=== PATIENT | male | born 1965 | race African-American/Black ===

== ENCOUNTER 2017-03-03 12:20 | Outpatient (CLI) | payer OTHER ==
[2013-07-02 20:29] VITALS: BP 102/62
[2017-03-03 20:10] LABS: TOTAL PROTEIN 7.8 g/dL (6.0-8.5)
== END 2017-03-03 12:21 ==
LOC: LAB 12:20
PROVIDERS: ATTEND Family Medicine
DX: E11.65 Type 2 diabetes mellitus with hyperglycemia (principal); I10 Essential (primary) hypertension
CPT/HCPCS: 36415; 80053; 80061; 82043; 83036

== ENCOUNTER 2017-04-04 09:49 | Outpatient (CLI) | payer OTHER ==
[2013-07-02 20:29] VITALS: BP 102/62
== END 2017-04-04 09:50 ==
LOC: LAB 09:49
PROVIDERS: ATTEND Family Medicine
DX: Z12.5 Encounter for screening for malignant neoplasm of prostate (principal)
CPT/HCPCS: 36415; 84153; G0103

== ENCOUNTER 2017-09-05 10:07 | Outpatient (CLI) | payer OTHER ==
[2013-07-02 20:29] VITALS: BP 102/62
[2017-09-05 11:04] LABS: eGFR (African) > 60; eGFR (Non-African) > 60
== END 2017-09-05 10:10 ==
LOC: LAB 10:07
PROVIDERS: ATTEND Family Medicine
DX: R07.9 Chest pain, unspecified (principal); E11.40 Type 2 diabetes mellitus with diabetic neuropathy, unspecified; E11.65 Type 2 diabetes mellitus with hyperglycemia
CPT/HCPCS: 36415; 80053; 80061; 83036

== ENCOUNTER 2018-01-09 13:23 | Outpatient (CLI) | payer OTHER ==
[2013-07-02 20:29] VITALS: BP 102/62
[2018-01-09 13:57] LABS: BASOPHILS % 0.4 (0.0-1.5); EOSINOPHILS % 1.2 % (0.0-6.8); MEAN CORPUSCULAR HEMOGLOBIN 25.2 pg (28.0-34.0); MEAN CORPUSCULAR VOLUME 84.9 fl (80.0-100.0); MONOCYTES % 6.4 % (0.0-11.0); NEUTROPHILS # 7.6 # k/uL (1.4-7.7)
[2018-01-09 14:21] LABS: eGFR (African) > 60; eGFR (Non-African) > 60
== END 2018-01-09 13:24 ==
LOC: LAB 13:23
PROVIDERS: ATTEND Family Medicine
DX: E11.65 Type 2 diabetes mellitus with hyperglycemia (principal); E29.1 Testicular hypofunction; Z12.5 Encounter for screening for malignant neoplasm of prostate
CPT/HCPCS: 36415; 80053; 80061; 82043; 83036; 84153; 84403; 85025

== ENCOUNTER 2018-12-18 15:39 | Outpatient (CLI) | payer OTHER ==
[2013-07-02 20:29] VITALS: BP 102/62
[2018-12-18 16:17] LABS: A1C 10.4 % (<5.7); eGFR (Non-African) > 60
[2018-12-18 16:18] LABS: HDL 38 mg/dL (>40)
== END 2018-12-18 15:41 ==
LOC: LAB 15:39
PROVIDERS: ATTEND Family Medicine
DX: E11.65 Type 2 diabetes mellitus with hyperglycemia (principal)
CPT/HCPCS: 36415; 80053; 80061; 82043; 83036

== ENCOUNTER 2019-05-18 14:02 | Outpatient (CLI) | payer OTHER ==
[2013-07-02 20:29] VITALS: BP 102/62
[2019-05-18 15:07] LABS: HDL 40 mg/dL (>40); eGFR (Non-African) > 60
[2019-05-21 07:49] LABS: A1C 6.7 % (<5.7)
== END 2019-05-18 14:07 ==
LOC: LAB 14:02
PROVIDERS: ATTEND Family Medicine
DX: I10 Essential (primary) hypertension (principal); E11.9 Type 2 diabetes mellitus without complications
CPT/HCPCS: 36415; 80053; 80061; 82043; 83036